=== PATIENT | female | born 1985 | race African-American/Black ===

== ENCOUNTER 2021-08-25 18:48 | Emergency (ER) | payer MEDICAID ==
[~2021-08-25] VITALS: Ht 167.6 cm; Wt 113.0 kg
[~2021-08-25 18:48] MED LIST: ASPI-1406 PO; INSNPH SUBCUT; INSU100V28 SUBCUT; LABE100T5 PO; PREN1TAB33 PO
[2021-08-25] MEDS ORDERED: SODIUM CHLORIDE 0.9% 1,000 ML IV ONE (19:30)
[2021-08-25] MEDS ORDERED: DIPHENHYDRAMINE 50MG/ML VIAL IV ONE (19:45)
[2021-08-25] MEDS ORDERED: METOCLOPRAMIDE HCL 10MG/2ML VIAL IV ONE (19:45)
[2021-08-25 21:07] LABS: CHLORIDE 101 mEq/L (98-107)
[2021-08-25 21:50] LABS: BASOPHILS % 0.8 % (0.0-2.0); HEMATOCRIT. 34.8 % (36.0-48.0); HEMOGLOBIN. 11.6 g/dL (12.0-16.0); LYMPHOCYTES % 31.2 % (20.0-50.0); MEAN CORPUSCULAR HEMOGLOBIN 29.5 pg (28.0-32.0); MEAN CORPUSCULAR VOLUME 88.3 fL (81.0-99.0); MEAN PLATELET VOLUME 7.7 fl (7.4-10.4); MONOCYTES % 6.8 % (2.0-8.0); NEUTROPHILS % 58.2 % (40.0-76.0); PLATELET 234 x1000/uL (130-400); RED BLOOD CELL COUNT 3.94 mill/uL (4.2-5.4); RED CELL DISTRIBUTION WIDTH 13.4 % (11.6-14.6)
[2021-08-26 01:43] VITALS: BP 159/98
== END 2021-08-26 01:55 | disposition short-term general hospital (02) ==
LOC: ER 18:48
DX: N17.9 Acute kidney failure, unspecified (principal); R55 Syncope and collapse; E11.9 Type 2 diabetes mellitus without complications; J45.909 Unspecified asthma, uncomplicated; I25.2 Old myocardial infarction; I10 Essential (primary) hypertension; Z20.822 Contact with and (suspected) exposure to COVID-19; Z88.0 Allergy status to penicillin; Z86.73 Personal history of transient ischemic attack (TIA), and cerebral infarction without residual deficits; Z98.890 Other specified postprocedural states
CPT/HCPCS: 36415; 70450; 80053; 84484; 85025; 87426; 93005; 96361; 96374; 96375; 99285; J1200; J2765; J7030

== ENCOUNTER 2022-02-07 05:32 | Emergency (ER) | payer MEDICAID ==
[~2022-02-07] VITALS: Ht 170.2 cm; Wt 109.0 kg
[2022-02-07] MEDS ORDERED: ONDANSETRON HCL 4MG/2ML INJ IV STA (06:24)
[2022-02-07] MEDS ORDERED: MORPHINE SULFATE 4 MG/ML CPJ (NOT FOR IM USE) IV STA (06:24)
[2022-02-07] MEDS ORDERED: ASPIRIN 81MG TABLET PO ONE (06:30)
[2022-02-07] MEDS ORDERED: NITROGLYCERIN OINT 1GM/INCH UDPKT TD ONE (06:30)
[2022-02-07] MEDS ORDERED: CLOPIDOGREL 75MG TABLET PO ONE (06:30)
[2022-02-07] MEDS ORDERED: METOPROLOL TARTRATE 100MG TABLET PO ONE (06:30)
[2022-02-07 06:32] LABS: BASOPHILS % 0.7 % (0.0-2.0); EOSINOPHILS % 2.9 % (0.0-5.0); HEMATOCRIT. 35.6 % (36.0-48.0); HEMOGLOBIN. 11.7 g/dL (12.0-16.0); LYMPHOCYTES % 26.6 % (20.0-50.0); MEAN CORPUSCULAR HEMOGLOBIN 29.2 pg (28.0-32.0); MEAN CORPUSCULAR VOLUME 88.6 fL (81.0-99.0); MEAN PLATELET VOLUME 7.4 fl (7.4-10.4); MONOCYTES % 7.5 % (2.0-8.0); NEUTROPHILS % 62.3 % (40.0-76.0); PLATELET 272 x1000/uL (130-400); RED BLOOD CELL COUNT 4.02 mill/uL (4.2-5.4); RED CELL DISTRIBUTION WIDTH 12.4 % (11.6-14.6)
[2022-02-07 06:42] LABS: CHLORIDE 102 mEq/L (98-107)
[2022-02-07] MEDS ORDERED: METOPROLOL TARTRATE 50MG TABLET PO NR (07:00)
[2022-02-07 07:13] LABS: HCG SCREEN NEGATIVE
[2022-02-07] MEDS ORDERED: POTASSIUM CHLORIDE 20MEQ TABLET SR PO ONE (07:30)
[2022-02-07] MEDS ORDERED: KCL 10MEQ/50ML PREMIX 50 ML IV ONE (07:30)
[2022-02-07 11:09] VITALS: BP 168/85
== END 2022-02-07 11:09 | disposition short-term general hospital (02) ==
LOC: ER 05:32 → CANBEDREQ 11:21
DX: R07.89 Other chest pain (principal); E87.6 Hypokalemia; I25.2 Old myocardial infarction; I10 Essential (primary) hypertension; Z20.822 Contact with and (suspected) exposure to COVID-19
CPT/HCPCS: 36415; 71045; 80053; 83690; 83880; 84484; 84703; 85025; 87426; 93005; 96365; 96375; 99285; J2270; J2405; J3480; Z7610

== ENCOUNTER 2022-03-04 14:16 | Emergency (ER) | payer MEDICAID ==
[~2022-03-04] VITALS: Ht 167.6 cm; Wt 105.0 kg
[2022-03-04 16:49] LABS: BASOPHILS % 0.4 % (0.0-2.0); EOSINOPHILS % 1.1 % (0.0-5.0); HEMATOCRIT. 33.8 % (36.0-48.0); HEMOGLOBIN. 11.1 g/dL (12.0-16.0); LYMPHOCYTES % 20.9 % (20.0-50.0); MEAN CORPUSCULAR HEMOGLOBIN 29.2 pg (28.0-32.0); MEAN CORPUSCULAR VOLUME 88.7 fL (81.0-99.0); MEAN PLATELET VOLUME 6.8 fl (7.4-10.4); MONOCYTES % 8.3 % (2.0-8.0); NEUTROPHILS % 69.3 % (40.0-76.0); PLATELET 325 x1000/uL (130-400); RED CELL DISTRIBUTION WIDTH 13.2 % (11.6-14.6)
[2022-03-04 16:59] LABS: CHLORIDE 103 mEq/L (98-107)
[2022-03-04 17:09] LABS: ETHANOL BLOOD < 10 mg/dL
[2022-03-04 17:10] LABS: CLARITY URINE CLOUDY (CLEAR); COLOR URINE DARK YELLOW (YELLOW); KETONES URINE TRACE (NEGATIVE); LEUKOCYTE ESTERASE URINE 1+ (NEGATIVE); NITRITE URINE NEGATIVE (NEGATIVE); OCCULT BLOOD URINE 3+ (NEGATIVE); PROTEIN URINE 1+ (NEGATIVE); SPECIFIC GRAVITY URINE 1.022 (1.005-1.030)
[2022-03-04 17:11] LABS: HCG SCREEN NEGATIVE
[2022-03-04 18:24] VITALS: BP 105/42
== END 2022-03-04 19:21 | disposition short-term general hospital (02) ==
LOC: ER 14:16 → CANBEDREQ 22:38
DX: R55 Syncope and collapse (principal); N17.9 Acute kidney failure, unspecified; E11.9 Type 2 diabetes mellitus without complications; I10 Essential (primary) hypertension; I25.10 Atherosclerotic heart disease of native coronary artery without angina pectoris; I25.2 Old myocardial infarction; Z20.822 Contact with and (suspected) exposure to COVID-19; Z79.4 Long term (current) use of insulin; Z98.61 Coronary angioplasty status; Z88.0 Allergy status to penicillin
CPT/HCPCS: 36415; 71045; 80053; 80320; 81003; 83605; 83880; 84484; 84703; 85025; 93005; 99285; G0480

== ENCOUNTER 2022-08-10 07:38 | Emergency (ER) | payer MEDICAID ==
[~2022-08-10] VITALS: Ht 175.3 cm; Wt 127.0 kg
[~2022-08-10 07:38] MED LIST changes: -LABE100T5 PO; +LABE100T9 PO
[2022-08-10 08:23] LABS: BASOPHILS % 0.5 % (0.0-2.0); HEMATOCRIT. 41.9 % (36.0-48.0); LYMPHOCYTES % 16.4 % (20.0-50.0); MEAN CORPUSCULAR HEMOGLOBIN 29.9 pg (28.0-32.0); MEAN CORPUSCULAR VOLUME 89.6 fL (81.0-99.0); MEAN PLATELET VOLUME 7.4 fl (7.4-10.4); MONOCYTES % 4.7 % (2.0-8.0); NEUTROPHILS % 77.4 % (40.0-76.0); PLATELET 299 x1000/uL (130-400); RED BLOOD CELL COUNT 4.68 mill/uL (4.2-5.4)
[2022-08-10 08:31] LABS: CHLORIDE 100 mEq/L (98-107)
[2022-08-10 09:01] LABS: HCG SCREEN NEGATIVE
[2022-08-10] MEDS ORDERED: SODIUM CHLORIDE 0.9% 1,000 ML IV ONE (09:45)
[2022-08-10] MEDS ORDERED: KETOROLAC 30MG/ML VIAL IV ONE (09:45)
[2022-08-10] MEDS ORDERED: METOCLOPRAMIDE HCL 10MG/2ML VIAL IV ONE (09:45)
[2022-08-10] MEDS ORDERED: HYDRALAZINE 20MG/ML VIAL IV ONE (10:30)
[2022-08-10] MEDS ORDERED: POTASSIUM CHLORIDE 20MEQ TABLET SR PO ONE (10:45)
[2022-08-10 14:27] VITALS: BP 176/95
== END 2022-08-10 14:29 | disposition short-term general hospital (02) ==
LOC: ER 07:38 → CANBEDREQ 14:24 → ER 14:29
DX: R55 Syncope and collapse (principal); E11.9 Type 2 diabetes mellitus without complications; I25.2 Old myocardial infarction; I10 Essential (primary) hypertension; I25.10 Atherosclerotic heart disease of native coronary artery without angina pectoris; Z86.73 Personal history of transient ischemic attack (TIA), and cerebral infarction without residual deficits; Z20.822 Contact with and (suspected) exposure to COVID-19; Z79.82 Long term (current) use of aspirin; Z79.4 Long term (current) use of insulin; Z88.0 Allergy status to penicillin
CPT/HCPCS: 36415; 70450; 71045; 72125; 80053; 83880; 84484; 84703; 85025; 85379; 87426; 93005; 96361; 96374; 96375; 99285; C9803; J0360; J1885; J2765; J7030; Z7610